=== PATIENT | male | born 1970 | race American Indian/Alaskan Native ===

== ENCOUNTER 2021-09-29 10:04 | Outpatient (CLI) | payer OTHER ==
--- NOTE | 2021-09-29 13:23 | XRay Report ---
Lumbar spine 3 views INDICATION: Back pain FINDINGS: Alignment appears normal. Facet changes at L4-5 and L5-S1. No compression fracture. No subl uxation. Sacrum and sacroiliac joints appear normal. Signer Name: Chaitanya Escalera MD Signed: 09/29/2021 1:18 PM Workstation Name: [id number]
--- NOTE | 2021-09-29 13:32 | XRay Report ---
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 There is dorsal tilt of the lunate, may reflect dorsal intercalated segment in stability (DISI). Mild degenerative narrowing of the capital lunate articulation. No acute fracture. Other: Soft tissues are unremarkable. Signer Name: Sal Hood MD Signed: 09/29/2021 1:27 PM Workstation Name: [id number]
== END 2021-09-29 10:05 | disposition home or self-care (01) ==
LOC: XRAY 10:04
PROVIDERS: ATTEND Internal Medicine
DX: M19.032 Primary osteoarthritis, left wrist (principal); M54.50 Low back pain, unspecified
CPT/HCPCS: 72100